=== PATIENT | female | born 1985 ===

== ENCOUNTER 2017-03-09 16:57 | Emergency (ER) | payer OTHER ==
[2017-03-09 17:09] VITALS: TEMP 98.7
--- NOTE | 2017-03-09 18:45 | C.PDOC ---
History Of Present Illness 32 year old patient presents to the ED complaining of a dry cough for the past 2 days. Patient also complains of a sore throat and runny nose for the past 2 weeks. She notes she gets most relief after taking Claritin. She has chest pain when she coughs. Patient denies any medical history, fever, chills, nausea, vomiting, or difficulty breathing. Time Seen by Provider: 03/09/17 17:43 Chief Complaint (Nursing): Cough, Cold, Congestion History Per: Patient History/Exam Limitations: no limitations Onset/Duration Of Symptoms: Days (2) Current Symptoms Are (Timing): Still Present Severity: Mild Pain Scale Rating Of: 3 Recent travel outside of the [place]: No Past Medical History Reviewed: Historical Data, Nursing Documentation, Vital Signs Vital Signs: Last Vital Signs Temp 98.7 F 03/09/17 17:07 Pulse 82 03/09/17 18:52 Resp 18 03/09/17 18:52 BP 123/79 03/09/17 18:52 Pulse Ox 97 03/09/17 20:33 Family History: States: Unknown Family Hx - Social History Hx Alcohol Use: No Hx Substance Use: No - Immunization History Hx Tetanus Toxoid Vaccination: No Hx Influenza Vaccination: No Hx Pneumococcal Vaccination: No Review Of Systems Except As Marked, All Systems Reviewed And Found Negative. Constitutional: Negative for: Fever, Chills ENT: Positive for: Nose Discharge, Throat Pain Cardiovascular: Positive for: Chest Pain (when coughing) Respiratory: Positive for: Cough. Negative for: Other (difficulty breathing) Gastrointestinal: Negative for: Nausea, Vomiting Physical Exam - Physical Exam Appears: Non-toxic, No Acute Distress Skin: Warm, Dry Head: Atraumatic, Normacephalic Eye(s): bilateral: Normal Inspection Ear(s): Bilateral: Normal Nose: Normal Oral Mucosa: Moist Throat: Normal Neck: Normal ROM, Supple Chest: Symmetrical Cardiovascular: Rhythm Regular Respiratory: No Accessory Muscle Use, No Rales, No Rhonchi, Wheezing (mild expiratroy) Gastrointestinal/Abdominal: Soft, No Tenderness Back: Normal Inspection, No CVA Tenderness Extremity: Bilateral: Atraumatic Neurological/Psych: Oriented x3, Normal Speech, Normal Cognition Gait: Steady ED Course And Treatment O2 Sat by Pulse Oximetry: 97 (room air) Pulse Ox Interpretation: Normal Progress Note: Plan: Toradol Disposition - Disposition Disposition: HOME/ ROUTINE Disposition Time: 18:42 Condition: GOOD Additional Instructions: Ues the inhaler for a wk try stopping if cough return begin again Prescriptions: Albuterol HFA [Ventolin HFA 90 mcg/actuation (8 g)] 1 puff IH QID PRN #1 puff PRN Reason: Cough Inhaler, Assist Devices [Space Chamber Plus] 1 each MC PRN #1 spacer Naproxen [Naprosyn] 1 tab PO BID PRN #25 tab PRN Reason: Pain Instructions: Allergies (ED) Print Language: URUGUAYAN - Clinical Impression Clinical Impression: Seasonal allergies - Scribe Statement The provider has reviewed the documentation as recorded by the Scribe Aisha Butcher Provider Attestation: All medical record entries made by the Scribe were at my direction and personally dictated by me. I have reviewed the chart and agree that the record accurately reflects my personal performance of the history, physical exam, medical decision making, and the department course for this patient. I have also personally directed, reviewed, and agree with the discharge instructions and disposition.
[2017-03-09 18:53] VITALS: BP 123/79; PULSE 82; RESP 18
[2017-03-09 19:35] VITALS: O2SAT 97
--- NOTE | 2017-03-12 08:39 | CARD ---
APPROVED REPORT EKG Measurement Heart [id number] <Conclusion> Normal sinus rhythm Normal ECG
== END 2017-03-09 18:52 | disposition home or self-care (01) ==
LOC: MERGE 16:57 → C.ER 16:57
DX: J30.2 Other seasonal allergic rhinitis (principal)
CPT/HCPCS: 93005; 96372; 99283; J1885